=== PATIENT | female | born 1960 | race Caucasian/White ===

== ENCOUNTER 2017-04-29 17:56 | Emergency (ER) | payer BC ==
[2017-04-29 19:09] VITALS: BP 144/60
--- NOTE | 2017-04-29 19:19 | UC ---
Lower Extremity/Ankle HPI - History of Current Complaint Chief Complaint: UCLowerExtremity Stated Complaint: LEFT ANKLE INJURY Time Seen by Provider: 04/29/17 19:12 Hx Obtained From: Patient Hx Last Menstrual Period: few years ?: No Onset/Duration: Sudden Onset - twisted ankle stepping off a ledge., Lasting Hours - 10 hours. Happened at 9:30 AM, Worse Since - with increased swelling Aggravating Factor(s): Standing, Ambulation Alleviating Factor(s): Rest, Elevation, Ice Able to Bear Weight: Yes - Risk Factors Gout Risk Factors: Age Over 40 DVT Risk Factors: Negative Septic Arthritis Risk Factor: Negative - Allergies/Home Medications Allergies/Adverse Reactions: Allergies Allergy/AdvReac Type Severity Reaction Status Date / Time No Known Allergies Allergy Verified 04/29/17 19:09 Home Medications: Home Medications Ibuprofen TAB* [Advil TAB*] 400 mg PO Q8H PRN 04/29/17 [History Confirmed ] PMH/Surg Hx/FS Hx/Imm Hx Psychological History: Anxiety - Surgical History Surgical History: Yes Surgery Procedure, Year, and Place: laser cervical - Family History Known Family History: Positive: Cardiac Disease Negative: Hypertension, Diabetes - Social History Occupation: Employed Full-time Lives: With Family Alcohol Use: Occasionally Substance Use Type: None Smoking Status (MU): Former Smoker Have You Smoked in the Last Year: No Review of Systems Eyes: Eye Redness - and itching with allergies. Musculoskeletal: Arthralgia - Left ankle All Other Systems Reviewed And Are Negative: Yes Physical Exam Triage Information Reviewed: Yes Appearance: Well-Appearing, No Pain Distress, Well-Nourished Vital Signs: Initial Vital Signs Temp 97.9 F 04/29/17 19:05 Pulse 74 04/29/17 19:05 Resp 16 04/29/17 19:05 BP 144/60 04/29/17 19:05 Pulse Ox 100 04/29/17 19:05 Vital Signs Reviewed: Yes Eyes: Positive: Conjunctiva Clear Neck exam: Normal Respiratory Exam: Normal Cardiovascular: Positive: RRR, Murmur:Sys:Grade _?_/ - 3/6 Musculoskeletal: Positive: ROM Limited @ - Left ankle, Other: - Left ankle with swelling over the lateral malleolus and tenderness. Neurological Exam: Normal Psychological Exam: Normal Skin Exam: Normal Lower Extremity Course/Dx - Differential Dx/Diagnosis Differential Diagnosis/HQI/PQRI: Contusion, Fracture (Closed), Sprain, Strain Provider Diagnoses: Left ankle fracture/ talus Discharge - Discharge Plan Condition: Stable Disposition: HOME Patient Education Materials: Ankle Fracture (ED) Referrals: Mary GAYTAN,Ondina Henson [Primary Care Provider] - Mark Han MD [Medical Doctor] - 1 Day Additional Instructions: Avoid weight bearing, Keep leg elevated. Wear the boot at all times.
--- NOTE | 2017-04-29 19:36 | RAD ---
HISTORY: Trauma, lateral malleolus pain COMPARISONS: None VIEWS: 3, Frontal, lateral, and oblique views of the left ankle FINDINGS: BONE DENSITY: Normal. BONES: There is minimal fragmentation of the lateral process of the talus JOINTS: There is no arthropathy. ALIGNMENT: There is no dislocation. SOFT TISSUES: There is circumferential soft tissue swelling OTHER FINDINGS: None. IMPRESSION: SOFT TISSUE SWELLING, WITH MINIMAL FRAGMENTATION OF THE LATERAL PROCESS OF THE TALUS SUGGESTIVE OF AN AVULSION FRACTURE
== END 2017-04-29 20:00 | disposition home or self-care (01) ==
LOC: UCCORT 17:56
DX: S92.102A Unspecified fracture of left talus, initial encounter for closed fracture (principal); W50.2XXA Accidental twist by another person, initial encounter; Y92.9 Unspecified place or not applicable; F41.9 Anxiety disorder, unspecified; Z87.891 Personal history of nicotine dependence
CPT/HCPCS: 99212; G0463

== ENCOUNTER 2019-01-21 12:10 | Emergency (ER) | payer BC ==
--- OUTSIDE RECORDS SUMMARY | 2019-01-21 13:08 | XMS REPORT | Continuity of Care Document ---
:1960 External Reference #:[id number] Author Name Ondina Bishop MD Address [address] [address] [place] [address] Care Team Providers Name Role Phone Ondina Barajas MD Primary Care Physician Unavailable Payers Date Identification Numbers Payment Provider Subscriber Policy Number: [id number] Out Of Area [employer] Number: [id number] [address] [id number] PayID: [id number] [place] [address] Advance Directives Description No Information Available Problems Date Description Provider Status Onset: 02/15/2015 Arthralgia of temporomandibular joint Active Onset: 03/18/2013 Depressive disorder Active Family History Date Family Member(s) Observation Comments General Hyperlipidemia : (age 49 Father due to Coronary Artery premature Years) Disease (CAD) Aunt Ovarian Cancer great aunt Social History Type Date Description Comments Sex Unknown ETOH Use Occasionally consumes alcohol Tobacco Use Start: Unknown Patient has never smoked Recreational Drug Use Never Used Drugs Smoking Status Reviewed: 12/18/17 Patient has never smoked Exercise Type/Frequency Exercises regularly Allergies, Adverse Reactions, Alerts Description No Known Drug Allergies Medications Medication Date Status Form Strength Qnty SIG Indications Ordering Provider Vitamin D3 12/24/ Active Capsules 2000Unit 1 orally Ondina 2018 every day Remi Bishop MD Fluticasone 07/10/ Active Suspension 50mcg/Act 15.80 1 spray H69.90 Maria Isabel Propionate 2017 0ml intranasal RA Borjas twice a day needed Citalopram 08/06/ Active Tablets 10mg 90tab take 1 Ondina Hydrobromide 2015 s tablet by Kelatrice mouth every kike Bishop MD Melatonin 25/ Active Tablets 5mg 0tabs use Unknown 2010 directed Multivitamins 09/13/ Active Capsules 0caps Take one Unknown 2009 capsule by mouth daily Celexa 10/26/ Hx Tablets 10mg 90tab take 1 Unknown 2015 - s tablet by 12/18/ oral route 2017 every day Naprosyn 02/15/ Hx Tablets 500mg 60tab take 1 Unknown 2014 - s tablet by 04/07/ oral route 2016 2 times every day with food Vitamin D 09/13/ Hx Tablets 2000Unit 0tabs 1 PO qd Unknown 2009 - with food 2017 Immunizations CPT Code Status Date Vaccine Lot # [id number] Given 12/18/2016 Tdap [id number] Vital Signs Date Vital Result Comment 12/24/2018 9:04am Height 59.5 inches 4'11.50" Weight 167.25 lb BMI (Body Mass Index) 33.2 kg/m2 BP Systolic 126 mmHg BP Diastolic 80 mmHg Heart Rate 67 /min Body Temperature 98.2 F Body Temperature 36.8 C O2 % BldC Oximetry 98 % 07/10/2018 12:22pm Height 59.5 inches 4'11.50" Weight 162.00 lb BMI (Body Mass Index) 32.2 kg/m2 BP Systolic 112 mmHg BP Diastolic 70 mmHg Heart Rate 103 /min Body Temperature 97.9 F Body Temperature 36.6 C O2 % BldC Oximetry 98 % 12/18/2017 10:58am Height 59.5 inches 4'11.50" Weight 169.50 lb BMI (Body Mass Index) 33.7 kg/m2 BP Systolic 128 mmHg BP Diastolic 78 mmHg Heart Rate 59 /min O2 % BldC Oximetry 100 % 12/18/2016 11:25am Height 59.5 inches 4'11.50" Weight 168.00 lb BMI (Body Mass Index) 33.4 kg/m2 BP Systolic 130 mmHg BP Diastolic 80 mmHg 04/07/2016 1:32pm Weight 171.00 lb BP Systolic 110 mmHg BP Diastolic 80 mmHg Heart Rate 64 /min Body Temperature 98.1 F Body Temperature 36.7 C O2 % BldC Oximetry 97 % 02/15/2015 11:36am Height 59.50 inches Weight 170.62 lb BMI (Body Mass Index) 33.88 kg/m2 BP Systolic 133 mmHg BP Diastolic 75 mmHg Heart Rate 65 /min Body Temperature 97.4 F Body Temperature 36.3 C 12/22/2013 2:38pm Heart Rate 61 /min 12/22/2013 2:38pm Weight 168.00 lb BP Systolic 138 mmHg BP Diastolic 78 mmHg Heart Rate 61 /min 01/16/2013 12:58pm Heart Rate 64 /min 01/16/2013 12:58pm Weight 175.50 lb BP Systolic 129 mmHg BP Diastolic 69 mmHg Heart Rate 64 /min Body Temperature 97.6 F Body Temperature 36.4 C 02/20/2012 1:58pm Weight 156.00 lb BP Systolic 107 mmHg BP Diastolic 69 mmHg Heart Rate 62 /min Body Temperature 97.0 F Body Temperature 36.1 C O2 % BldC Oximetry 100 % 08/15/2011 1:01pm Weight 160.00 lb BP Systolic 114 mmHg BP Diastolic 69 mmHg Heart Rate 71 /min 09/13/2010 12:36pm Height 60.50 inches Weight 164.00 lb BMI (Body Mass Index) 31.00 kg/m2 BP Systolic 116 mmHg BP Diastolic 80 mmHg Heart Rate 68 /min Body Temperature 97.9 F Body Temperature 36.6 C O2 % BldC Oximetry 99 % 03/26/2009 11:45am Height 60.50 inches Weight 164.00 lb BMI (Body Mass Index) 31.00 kg/m2 BP Systolic 132 mmHg BP Diastolic 78 mmHg Heart Rate 71 /min 07/27/2008 9:52am Weight 164.00 lb BP Systolic 115 mmHg BP Diastolic 74 mmHg Heart Rate 60 /min Body Temperature 96.6 F Body Temperature 35.9 C 07/11/2007 12:42pm Weight 166.00 lb Results Test Date Facility Test Result H/L Range Note Cbcadp 12/18/2017 [facility] WBC 6.9 x10E3/uL 4.2-12.0 [address] [place] [address] [phone] RBC 4.09 x10E6/uL 3.9-5.4 HGB 12.4 g/dL 12.0-16.0 HCT 38.3 % 36-47 MCV 93.5 fL 80-98 MCH 30.4 pg 27-33 MCHC 32.5 g/dL 32-36 RDW 13.3 % 11.2-15.2 PLT 205 x10E3/uL 135-420 MPV 8.8 fL 7.0-12.3 % Clarke 51.0 % 41.0-80.0 %Lym 43.3 % 10.0-45.2 %Routt 3.9 % 2.0-13.0 %Eos 1.3 % 0.0-8.0 %Baso 0.5 % 0.0-3.0 Neut 3.5 x10E3/uL 2.0-8.1 Lymp 3.0 x10E3/uL 0.6-3.1 Routt 0.3 x10E3/uL 0.0-1.0 Eos 0.1 x10E3/uL 0.0-0.6 Baso 0.0 x10E3/uL 0.0-0.2 CMP-Female 12/18/2017 [facility] Glucose 90 mg/ dL 74-106 1 [address] [place] [address] [phone] BUN 17 mg/dL 6-20 Creatinine 0.6 mg/dL 0.5-1.3 Sodium 141 mmol/L 136-145 Potassium 4.3 mmol/L 3.5-5.3 Chloride 105 mmol/L 98-107 Co2 29 mEq/L 20-31 Anion Gap 7 mmol/L 7-16 eGFR-female 103 mL/m/1.73m - eGFR-Aa female 125 mL/m/1.73m - 2 Alk. Phos. 60 U/L 46-116 Alt 23 U/L 4-36 3 Ast 20 U/L 8-33 Total Bilirubin 0.5 mg/dL 0.3-1.2 Total Protein 7.2 g/dL 6.4-8.3 4 Albumin 4.4 g/dL 3.6-5.1 A/G Ratio 1.6 Ratio 1.0-2.0 Globulin 2.8 g/dL 2.4-3.7 Calcium 9.2 mg/dL 8.9-10.5 LPPM 12/18/2017 [facility] Cholesterol 235 mg/ dL High 0-200 [address] [place] [address] [phone] Triglycerides 69 mg/dL 0-249 5 HDL 100 mg/dL High 40-60 LDL-Calculated 121 mg/dL 0-130 VLDL 14 mg/dL 0-28 Cardiac Risk 2.35 Ratio Low 3.7-5.3 Laboratory test 12/18/2017 [facility] TSH3 0.997 mIU/ml 0.350-5.500 6 finding [address] [place] [address] [phone] Vitamin D, 25(Oh). 25.72 ng/ml Low 30-100 7 Venipuncture DONE - 8 Cbcadp 12/18/2016 [facility] WBC 7.4 x10E3/uL 4.2-12.0 [address] [place] [address] [phone] RBC 4.12 x10E6/uL 3.9-5.4 HGB 12.5 g/dL 12.0-16.0 HCT 38.6 % 36-47 MCV 93.8 fL 80-98 MCH 30.3 pg 27-33 MCHC 32.3 g/dL 32-36 RDW 13.6 % 11.2-15.2 PLT 228 x10E3/uL 135-420 MPV 8.7 fL 7.0-12.3 % Clarke 49.1 % 41.0-80.0 %Lym 45.5 % High 10.0-45.2 %Routt 3.7 % 2.0-13.0 %Eos 1.3 % 0.0-8.0 %Baso 0.4 % 0.0-3.0 Neut 3.6 x10E3/uL 2.0-8.1 Lymp 3.4 x10E3/uL High 0.6-3.1 Routt 0.3 x10E3/uL 0.0-1.0 Eos 0.1 x10E3/uL 0.0-0.6 Baso 0.0 x10E3/uL 0.0-0.2 CMP-Female 12/18/2016 [facility] Glucose 94 mg/ dL 74-106 9 [address] [place] [address] [phone] BUN 15 mg/dL 6-20 Creatinine 0.7 mg/dL 0.5-1.3 Sodium 141 mmol/L 136-145 Potassium 4.6 mmol/L 3.5-5.3 Chloride 105 mmol/L 98-107 Co2 30 mEq/L 20-31 Anion Gap 6 mmol/L Low 7-16 eGFR-female 87 mL/m/1.73m - eGFR-Aa female 105 mL/m/1.73m - 10 Alk. Phos. 60 U/L 46-116 Alt 22 U/L 4-36 Ast 18 U/L 8-33 Total Bilirubin 0.4 mg/dL 0.3-1.2 Total Protein 7.3 g/dL 6.4-8.3 11 Albumin 4.4 g/dL 3.4-4.8 A/G Ratio 1.5 Ratio 1.0-2.0 Globulin 2.9 g/dL 2.4-3.7 Calcium 9.6 mg/dL 8.9-10.5 LPPM 12/18/2016 [facility] Cholesterol 237 mg/ dL High 0-200 [address] [place] [address] [phone] Triglycerides 94 mg/dL 0-249 12 HDL 110 mg/dL High 40-60 LDL-Calculated 108 mg/dL 0-130 VLDL 19 mg/dL 0-28 Cardiac Risk 2.15 Ratio Low 3.7-5.3 Laboratory test 12/18/2016 [facility] TSH3 1.426 mIU/ml 0.350-5.500 13 finding [address] [place] [address] [phone] Venipuncture DONE - 14 Advia Cbcadp 01/16/2013 [facility] % Clarke 45.5 % [address] [place] [address] [phone] %Baso 0.4 % %Eos 1.7 % %Lym 45.8 % %Routt 4.0 % Baso 0.0 x10E3/uL Eos 0.1 x10E3/uL HCT 39.5 % HGB 13.2 g/dL Lymp 3.0 x10E3/uL MCH 30.4 pg MCHC 33.5 g/dL MCV 90.9 fL MPV 7.8 fL Routt 0.3 x10E3/uL Neut 3.0 x10E3/uL PLT 208 x10E3/uL RBC 4.34 x10E6/uL RDW 12.9 % WBC 6.5 x10E3/uL Vitamin D, 25(Oh). 01/16/2013 [facility] Vitamin D, 25(Oh). 32.00 ng/ml 15 [address] [place] [address] [phone] Venipuncture 01/16/2013 [facility] Venipuncture Done [address] [address] [phone] Uric Acid 01/16/2013 [facility] Uric Acid 4.7 mg /dL [address] [place] [address] [phone] CMP-Female 01/16/2013 [facility] A/G Ratio 1.7 Ratio [address] [place] [address] [phone] Albumin 4.7 g/dL Alk. Phos. 65 U/L Alt 21 U/L Anion Gap 9 mmol/L Ast 20 U/L BUN 16 mg/dL Calcium 9.9 mg/dL Chloride 104 mmol/L Co2 30 mEq/L Creatinine 0.8 mg/dL Globulin 2.8 g/dL Glucose 92 mg/dL 16 Potassium 4.5 mmol/L Sodium 143 mmol/L Total Bilirubin 0.5 mg/dL Total Protein 7.5 g/dL 17 eGFR-Aa female 91 mL/m/1.73m 18 eGFR-female 75 mL/m/1.73m LDH 01/16/2013 [facility] LDH 202 U/L [address] [address] [phone] LDL-Direct 01/16/2013 [facility] LDL-Direct 120 mg/dL [address] [place] [address] [phone] TSH3 01/16/2013 [facility] TSH3 0.839 miu/ml [address] [id number] [phone] Phosphorus 01/16/2013 [facility] Phosphorus 4.0 mg/dL [address] [place] [address] [phone] LPP 01/16/2013 [facility] Cardiac Risk 2.06 Ratio [address] [place] [address] [phone] Cholesterol 239 mg/dL HDL 116 mg/dL 19 Triglycerides 47 mg/dL 20 VLDL 9 mg/dL Venipuncture 02/20/2012 [facility] Venipuncture Done [address] [place] [address] [phone] Uric Acid 02/20/2012 [facility] Uric Acid 4.2 mg /dL [address] [place] [address] [phone] TSH3 02/20/2012 [facility] TSH3 1.264 miu/ml [address] [place] [address] [phone] Advia Cbcadp 02/20/2012 [facility] % Clarke 50.3 % [address] [place] [address] [phone] %Baso 0.9 % %Eos 2.0 % %Lym 40.7 % %Routt 3.7 % Baso 0.1 x10E3/uL Eos 0.1 x10E3/uL HCT 39.9 % HGB 13.2 g/dL Lymp 2.9 x10E3/uL MCH 30.3 pg MCHC 33.0 g/dL MCV 91.8 fL MPV 8.5 fL Routt 0.3 x10E3/uL Neut 3.5 x10E3/uL PLT 221 x10E3/uL RBC 4.35 x10E6/uL RDW 12.6 % WBC 7.0 x10E3/uL CMP-Female 02/20/2012 [facility] A/G Ratio 1.5 Ratio [address] [place] [address] [phone] Albumin 4.5 g/dL Alk. Phos. 60 U/L Alt 20 U/L Anion Gap 8 mmol/L Ast 20 U/L BUN 14 mg/dL Calcium 9.7 mg/dL Chloride 105 mmol/L Co2 29 mEq/L Creatinine 0.8 mg/dL Globulin 3.1 g/dL Glucose 84 mg/dL 21 Potassium 4.4 mmol/L Sodium 142 mmol/L Total Bilirubin 0.5 mg/dL Total Protein 7.6 g/dL 22 eGFR-Aa female 92 mL/m/1.73m 23 eGFR-female 76 mL/m/1.73m LDH 02/20/2012 [facility] LDH 176 U/L [address] [place] [address] [phone] Phosphorus 02/20/2012 [facility] Phosphorus 4.0 mg/dL [address] [place] [address] [phone] LPP 02/20/2012 [facility] Cardiac Risk 2.16 Ratio [address] [place] [address] [phone] Cholesterol 229 mg/dL HDL 106 mg/dL Triglycerides 61 mg/dL 24 VLDL 12 mg/dL LDL-Direct 02/20/2012 [facility] LDL-Direct 109 mg/dL [address] [place] [address] [phone] Vitamin D, 25(Oh) 09/16/2010 [facility] Vitamin D , 25(Oh) 32 ng/mL 25 [address] [place] [address] [phone] Advia Cbcadp 09/13/2010 [facility] % Clarke 47.6 % [address] [place] [address] [phone] %Baso 0.5 % %Eos 1.5 % %Lym 44.9 % %Routt 3.3 % Baso 0.0 x10E3/uL Eos 0.1 x10E3/uL HCT 39.5 % HGB 12.8 g/dL Lymp 3.0 x10E3/uL MCH 29.6 pg MCHC 32.5 g/dL MCV 91.0 fL MPV 7.7 fL Routt 0.2 x10E3/uL Neut 3.2 x10E3/uL PLT 187 x10E3/uL RBC 4.34 x10E6/uL RDW 13.0 % WBC 6.6 x10E3/uL CMP-Female 09/13/2010 [facility] A/G Ratio 1.5 Ratio [address] [place] [address] [phone] Albumin 4.4 g/dL Alk. Phos. 49 U/L Alt 20 U/L Anion Gap 6 mmol/L Ast 20 U/L BUN 15 mg/dL Calcium 9.7 mg/dL Chloride 105 mmol/L Co2 30 mEq/L Creatinine 0.9 mg/dL Globulin 3 g/dL Glucose 91 mg/dL 26 Potassium 4.1 mmol/L Sodium 141 mmol/L Total Bilirubin 0.5 mg/dL Total Protein 7.4 g/dL 27 eGFR-Aa female 81 mL/m/1.73m 28 eGFR-female 67 mL/m/1.73m Uric Acid 09/13/2010 [facility] Uric Acid 4.1 mg /dL [address] [place] [address] [phone] LDH 09/13/2010 [facility] LDH 186 U/L [address] [place] [address] [phone] LDL-Direct 09/13/2010 [facility] LDL-Direct 118 mg/dL [address] [place] [address] [phone] LPP 09/13/2010 [facility] Cardiac Risk 2.05 Ratio [address] [place] [address] [phone] Cholesterol 226 mg/dL HDL 110 mg/dL 29 Triglycerides 46 mg/dL 30 VLDL 9 mg/dL Phosphorus 09/13/2010 [facility] Phosphorus 3.3 mg/dL [address] [place] [address] [phone] TSH3 09/13/2010 [facility] TSH3 0.997 miu/ml [address] [place] [address] [phone] Felicita 03/30/2009 [facility] Felicita Negative [address] [place] [address] [phone] Felicita Negative WSR 03/26/2009 [facility] Westergren Sed Rt. 17 mm/hr [address] [place] [address] [phone] Westergren Sed Rt. 17 mm/hr Uric Acid 03/26/2009 [facility] Uric Acid 4.0 mg /dL [address] [place] [address] [phone] Uric Acid 4.0 mg/dL LDL-Direct 03/26/2009 [facility] LDL-Direct 106 mg/dL [address] [place] [id number] [phone] LDL-Direct 106 mg/dL LDH 03/26/2009 [facility] LDH 197 U/L [address] [address] [phone] LDH 197 U/L CMP-Female 03/26/2009 [facility] A/G Ratio 1.5 Ratio [address] [place] [address] [phone] A/G Ratio 1.5 Ratio Albumin 4.7 g/dL Albumin 4.7 g/dL Alk. Phos. 62 U/L Alk. Phos. 62 U/L Alt 22 U/L Alt 22 U/L Anion Gap 7 mmol/L Anion Gap 7 mmol/L Ast 20 U/L Ast 20 U/L BUN 20 mg/dL BUN 20 mg/dL Calcium 9.5 mg/dL Calcium 9.5 mg/dL Chloride 106 mmol/L Chloride 106 mmol/L Co2 28 mEq/L Co2 28 mEq/L Creatinine 0.7 mg/dL Creatinine 0.7 mg/dL Globulin 3.2 g/dL Globulin 3.2 g/dL Glucose 98 mg/dL 31 Glucose 98 mg/dL 32 Patient Age 48 Patient Age 48 Potassium 4.4 mmol/L Potassium 4.4 mmol/L Sodium 141 mmol/L Sodium 141 mmol/L Total Bilirubin 0.4 mg/dL Total Bilirubin 0.4 mg/dL Total Protein 7.9 g/dL 33 Total Protein 7.9 g/dL 34 eGFR-Aa female 108 mL/m/1.73m 35 eGFR-Aa female 108 mL/m/1.73m 36 eGFR-female 89 mL/m/1.73m eGFR-female 89 mL/m/1.73m LPP 03/26/2009 [facility] Cardiac Risk 2.27 Ratio [place] [address] [phone] Cardiac Risk 2.27 Ratio Cholesterol 225 mg/dL Cholesterol 225 mg/dL HDL 99 mg/dL HDL 99 mg/dL Triglycerides 52 mg/dL 37 Triglycerides 52 mg/dL 38 VLDL 10 mg/dL VLDL 10 mg/dL Phosphorus 03/26/2009 [facility] Phosphorus 3.9 mg/dL [address] [place] [address] [phone] Phosphorus 3.9 mg/dL Advia Cbcadp 03/26/2009 [facility] % Clarke 40.6 % [address] [place] [address] [phone] % Clarke 40.6 % %Baso 1.1 % %Baso 1.1 % %Eos 1.4 % %Eos 1.4 % %Lym 50.6 % %Lym 50.6 % %Routt 3.3 % %Routt 3.3 % Baso 0.1 3/uL Baso 0.1 3/uL Eos 0.1 3/uL Eos 0.1 3/uL HCT 37.4 % HCT 37.4 % HGB 12.4 g/dL HGB 12.4 g/dL Lymp 4.4 3/uL Lymp 4.4 3/uL MCH 29.6 pg MCH 29.6 pg MCHC 33.2 g/dL MCHC 33.2 g/dL MCV 89.1 fL MCV 89.1 fL MPV 8.3 fL MPV 8.3 fL Routt 0.3 3/uL Routt 0.3 3/uL Neut 3.5 3/uL Neut 3.5 3/uL PLT 237 3/uL PLT 237 3/uL RBC 4.19 6/uL RBC 4.19 6/uL RDW 12.5 % RDW 12.5 % WBC 8.7 3/uL WBC 8.7 3/uL TSH 03/26/2009 [facility] TSH 0.827 miu/ml [address] [place] [address] [phone] TSH 0.827 miu/ml Estradiol 07/11/2007 [facility] Estradiol 25 pg/ mL 39 [address] [place] [address] [phone] FSH 07/11/2007 [facility] FSH 72.5 miU/ml 40 [address] [place] [address] [phone] Free T4 07/11/2007 [facility] Free T4 1.01 ng/ dL 41 [address], [place] [id number] [phone] HCG Serum Qual 07/11/2007 [facility] HCG Serum Qual Negative [address] [id number] [phone] LH 07/11/2007 [facility] LH 41.2 miU/ml 42 [address], [place] [id number] [phone] TSH 07/11/2007 [facility] TSH 1.461 miu/ml [address] [address] [phone] 1 [place] [employer] (ADA) Recommended Range is 65-99 mg/dL 2 Normal Kidney Function or Mild Disease GFR >59 mL/min/1.73m2 Chronic Kidney Disease GFR 15-59 mL/min/1.73m2 Renal Failure GFR <15 mL/min/1.73m2 3 Effective 04/21/2017: [employer] has indicated interference with the drugs sulfasalazine and sulfapyridine. They suggest collection should occur prior to drug administration due to falsely depressed results. 4 Results may reflect a potential interference in Total Protein results in patients receiving dextran as blood volume expanders. 5 National Cholesterol Education Program (NCEP) Guidelines: Recommended Range <150 mg/dL 6 nonfasting 7 Recommended Levels for Circulating 25-hydroxy Vitamin D: Vitamin D Status 25-OH Vitamin D Test Result Deficient <10ng/mL Insufficient 10-29ng/mL Sufficient 30-100ng/mL Potential Intoxication >100ng/mL A pediatric reference range has not been established using this method. 8 nonfasting 9 [employer] (ADA) Recommended Range is 65-99 mg/dL 10 Normal Kidney Function or Mild Disease GFR >59 mL/min/1.73m2 Chronic Kidney Disease GFR 15-59 mL/min/1.73m2 Renal Failure GFR <15 mL/min/1.73m2 11 Results may reflect a potential interference in Total Protein results in patients receiving dextran as blood volume expanders. 12 National Cholesterol Education Program (NCEP) Guidelines: Recommended Range <150 mg/dL 13 non fasting 14 non fasting 15 Recommended Levels for Circulating 25-hydroxy Vitamin D: Vitamin D Status 25-OH Vitamin D Test Result Deficient <10ng/mL Insufficient 10-29ng/mL Sufficient 30-100ng/mL Potential Intoxication >100ng/mL A pediatric reference range has not been established using this method. 16 [employer] (ADA) Recommended Range is 65-99 mg/dL 17 Results may reflect a potential interference in Total Protein results in patients receiving dextran as blood volume expanders. 18 Normal Kidney Function or Mild Disease GFR >59 mL/min/1.73m2 Chronic Kidney Disease GFR 15-59 mL/min/1.73m2 Renal Failure GFR <15 mL/min/1.73m2 As of 12/21/2008 the equation used to calculate eGFR has been changed to reflect a reagent reformulation. The reference range has not been affected. 19 Results Confirmed on Dilution. 20 National Cholesterol Education Program (NCEP) Guidelines: Recommended Range <150 mg/dL 21 [employer] [place] [employer] (ADA) Recommended Range is 65-99 mg/dL 22 Results may reflect a potential interference in Total Protein results in patients receiving dextran as blood volume expanders. 23 Normal Kidney Function or Mild Disease GFR >59 mL/min/1.73m2 Chronic Kidney Disease GFR 15-59 mL/min/1.73m2 Renal Failure GFR <15 mL/min/1.73m2 As of 12/21/2008 the equation used to calculate eGFR has been changed to reflect a reagent reformulation. The reference range has not been affected. 24 National Cholesterol Education Program (NCEP) Guidelines: Recommended Range <150 mg/dL 25 Recommended Levels for Circulating 25-hydroxy Vitamin D: Vitamin D Status 25-OH Vitamin D Test Result Deficient <10ng/mL Insufficient 10-29ng/mL Sufficient 30-100ng/mL Potential Intoxication >100ng/mL A pediatric reference range has not been established using this method. 26 [employer] [employer] (ADA) Recommended Range is 65-99 mg/dL 27 Results may reflect a potential interference in Total Protein results in patients receiving dextran as blood volume expanders. 28 Normal Kidney Function or Mild Disease GFR >59 mL/min/1.73m2 Chronic Kidney Disease GFR 15-59 mL/min/1.73m2 Renal Failure GFR <15 mL/min/1.73m2 As of 12/21/2008 the equation used to calculate eGFR has been changed to reflect a reagent reformulation. The reference range has not been affected. 29 Results Confirmed on Dilution. 30 National Cholesterol Education Program (NCEP) Guidelines: Recommended Range <150 mg/dL 31 [employer] [employer] (ADA) Recommended Range is 65-99 mg/dL 32 [employer] [employer] (ADA) Recommended Range is 65-99 mg/dL 33 Results may reflect a potential interference in Total Protein results in patients receiving dextran as blood volume expanders. 34 Results may reflect a potential interference in Total Protein results in patients receiving dextran as blood volume expanders. 35 Normal Kidney Function or Mild Disease GFR >59 mL/min/1.73m2 Chronic Kidney Disease GFR 15-59 mL/min/1.73m2 Renal Failure GFR <15 mL/min/1.73m2 As of 12/21/2008 the equation used to calculate eGFR has been changed to reflect a reagent reformulation. The reference range has not been affected. 36 Normal Kidney Function or Mild Disease GFR >59 mL/min/1.73m2 Chronic Kidney Disease GFR 15-59 mL/min/1.73m2 Renal Failure GFR <15 mL/min/1.73m2 As of 12/21/2008 the equation used to calculate eGFR has been changed to reflect a reagent reformulation. The reference range has not been affected. 37 National Cholesterol Education Program (NCEP) Guidelines: Recommended Range <150 mg/dL 38 National Cholesterol Education Program (NCEP) Guidelines: Recommended Range <150 mg/dL 39 Reference Ranges Menstruating Females: (Day of cycle relative to LH Peak) Follicular (-12) 19 - 83 pg/mL (-4) 64 - 183 Midcycle (-1) 150 - 528 Luteal (+2) 58 - 157 (+6) 60 - 211 (+12) 55 - 150 Post Menopausal Female (Untreated) 0 - 31 40 Interpretation: Reference Ranges Males 1.4 - 18.1 miu/ml Normally Menstruating Females Follicular Phase: 2.5 - 10.2 miu/ml Midcycle Phase: 3.4 - 33.4 miu/ml Luteal Phase: 1.5 - 9.1 miu/ml Post Menopausal Female: 23.0 - 116.3 miu/ml 41 Results [phone] 42 Interpretation: Reference Ranges Males (20-70 yrs) : 1.5 - 9.3 miu/ml Normally Menstruating Females Follicular Phase: 1.9 - 12.5 miu/ml Midcycle Phase: 8.7 - 76.3 miu/ml Luteal Phase: 0.5 - 16.9 miu/ml Female: <0.1 - 1.5 miu/ml Post Menopausal Female: 15.9 - 54.0 miu/ml Procedures Date Code Description Status 09/13/2010 85717 Electrocardiogram Complete Completed Encounters Type Date Location Provider Dx Diagnosis Office Visit 07/10/2018 [facility] Primary Care Maria Isabel Borjas, H69.93 Unspecified 12:20p AT [facility] Eustachian tube disorder, bilateral J30.9 Allergic rhinitis, unspecified Office Visit 12/18/2017 11:00a [facility] Primary Ondina Khalil Z00.00 Encntr for Care AT Marlena Bishop MD general adult medical exam w/o abnormal findings E78.5 Hyperlipidemia, unspecified F41.9 Anxiety disorder, unspecified M85.80 Oth disrd of bone density and structure, unspecified site H92.02 Otalgia, left ear Office Visit 12/18/2016 11:30a [facility] Primary Ondina Khalil Z00.00 Encntr for Care AT Marlena Bishop MD general adult medical exam w/o abnormal findings E78.5 Hyperlipidemia, unspecified H92.02 Otalgia, left ear M85.80 Oth disrd of bone density and structure, unspecified site Z23 Encounter for immunization Office Visit 04/07/2016 1:40p [facility] Jael Wang, H92.02 Otalgia, left AT [place] [employer] ear Plan of Treatment Future Appointment(s):12/31/2019 8:00 am - Ondina Bishop MD at [id number]/24/2018 - Ondina Bishop MDZ00.00 Encounter for general adult medical examination without abnoE78.5 Hyperlipidemia, [id number] Other specified disorders of bone density and structure, unsE55.9 Vitamin D deficiency, [id number] Anxiety disorder, [id number] Nonscarring hair loss, unspecified
[2019-01-21 13:09] VITALS: BP 128/75
--- NOTE | 2019-01-21 13:20 | UC ---
UC General HPI - HPI Summary HPI Summary: PER TRIAGE, pt with cough, feels feverish, left eye redness. Pt states family with flu. symptoms since sunday. + headache and bodyaches plus scratchy throat. spouse with same and dx flu. - History of Current Complaint Chief Complaint: UCRespiratory Stated Complaint: CONGESTION, COUGH, FLU EXPOSURE Time Seen by Provider: 01/21/19 13:13 Hx Obtained From: Patient Hx Last Menstrual Period: few years Onset/Duration: Sudden Onset Timing: Constant Pain Intensity: 2 Associated Signs & Symptoms: Negative: Diarrhea, SOB, Vomiting - Allergy/Home Medications Allergies/Adverse Reactions: Allergies Allergy/AdvReac Type Severity Reaction Status Date / Time No Known Allergies Allergy Verified 01/21/19 13:09 PMH/Surg Hx/FS Hx/Imm Hx Psychological History: Depression - Surgical History Surgical History: Yes Surgery Procedure, Year, and Place: laser cervical - Family History Known Family History: Positive: Cardiac Disease Negative: Hypertension, Diabetes - Social History Alcohol Use: Weekly Substance Use Type: None Smoking Status (MU): Former Smoker Have You Smoked in the Last Year: No Review of Systems All Other Systems Reviewed And Are Negative: Yes Constitutional: Positive: Fever, Chills ENT: Positive: Sore Throat Respiratory: Positive: Cough Musculoskeletal: Positive: Myalgia Neurological: Positive: Headache Physical Exam Triage Information Reviewed: Yes Appearance: Well-Appearing Vital Signs: Initial Vital Signs Temp 100.1 F 01/21/19 13:06 Pulse 90 01/21/19 13:06 Resp 18 01/21/19 13:06 BP 128/75 01/21/19 13:06 Pulse Ox 95 01/21/19 13:06 Vital Signs Reviewed: Yes Eyes: Positive: Conjunctiva Clear, Other: - subconjunctival hemorrhage L inner eye ENT: Positive: Pharynx normal, TMs normal. Negative: Nasal drainage Neck: Positive: Supple, Nontender, No Lymphadenopathy Respiratory: Positive: Lungs clear, Normal breath sounds, No respiratory distress Cardiovascular: Positive: RRR, No Murmur Abdomen Description: Positive: Nontender, No Organomegaly, Soft Bowel Sounds: Positive: Present Musculoskeletal: Positive: ROM Intact Neurological: Positive: Alert Psychological: Positive: Age Appropriate Behavior Skin Exam: Normal Skin: Negative: Rashes Course/Dx - Differential Dx - Multi-Symptom Differential Diagnoses: Other - s/s's c/w influenza and spouse with same confirmed with test. 3rd day of symptoms, Tamiflu not indicated. - Diagnoses Provider Diagnosis: Influenza-like illness Discharge - Sign-Out/Discharge Documenting (check all that apply): Patient Departure All imaging exams completed and their final reports reviewed: No Studies - Discharge Plan Condition: Stable Disposition: HOME Patient Education Materials: Influenza (ED) Forms: *Work Release Referrals: Mary GAYTAN,Ondina Henson [Primary Care Provider] - Additional Instructions: FOLLOW UP PRIMARY CARE IF NOT BETTER IN 5 DAYS OR SOONER IF WORSE. - Billing Disposition and Condition Condition: STABLE Disposition: Home
== END 2019-01-21 13:31 | disposition home or self-care (01) ==
LOC: UCCORT 12:10
DX: R05 Cough (principal); R50.9 Fever, unspecified; H57.89 Other specified disorders of eye and adnexa; Z20.828 Contact with and (suspected) exposure to other viral communicable diseases
CPT/HCPCS: 99211; G0463

== ENCOUNTER 2019-02-23 08:10 | Emergency (ER) | payer BC ==
[2019-02-23 08:34] VITALS: BP 129/78
--- NOTE | 2019-02-23 09:07 | UC ---
Throat Pain/Nasal Yasir HPI - HPI Summary HPI Summary: pt c/o laryngitis, St bilateral ear plugged, nasal congestion, occiasional cough X 2 days. - History of Current Complaint Chief Complaint: UCRespiratory Stated Complaint: THROAT,EARS,COUGH Time Seen by Provider: 02/23/19 08:42 Hx Obtained From: Patient Hx Last Menstrual Period: few years ?: No Onset/Duration: Sudden Onset, Lasting Days, Still Present Severity: Mild Pain Intensity: 0 Cough: Nonproductive Associated Signs & Symptoms: Positive: Hoarseness - Epiglottits Risk Factors Epiglottis Risk Factors: Negative - Allergies/Home Medications Allergies/Adverse Reactions: Allergies Allergy/AdvReac Type Severity Reaction Status Date / Time No Known Allergies Allergy Verified 02/23/19 08:28 Home Medications: Home Medications Naproxen Sodium [Aleve] 220 mg PO ONCE PRN 02/23/19 [History Confirmed 02/23/19] PMH/Surg Hx/FS Hx/Imm Hx Previously Healthy: Yes - Surgical History Surgical History: Yes Surgery Procedure, Year, and Place: laser cervical - Family History Known Family History: Positive: Cardiac Disease Negative: Hypertension, Diabetes - Social History Occupation: Employed Full-time Lives: With Family Alcohol Use: Weekly Substance Use Type: None Smoking Status (MU): Former Smoker Have You Smoked in the Last Year: No - Immunization History Vaccination Up to Date: Yes Review of Systems All Other Systems Reviewed And Are Negative: Yes Constitutional: Positive: Negative Skin: Positive: Negative Eyes: Positive: Negative ENT: Positive: Sore Throat, Ear Ache Respiratory: Positive: Cough Cardiovascular: Positive: Negative Gastrointestinal: Positive: Negative Genitourinary: Positive: Negative Motor: Positive: Negative Neurovascular: Positive: Negative Musculoskeletal: Positive: Negative Neurological: Positive: Negative Psychological: Positive: Negative Is Patient Immunocompromised?: No Physical Exam Triage Information Reviewed: Yes Appearance: Well-Appearing Vital Signs: Initial Vital Signs Temp 97.1 F 02/23/19 08:30 Pulse 74 02/23/19 08:30 Resp 18 02/23/19 08:30 BP 129/78 02/23/19 08:30 Pulse Ox 97 02/23/19 08:30 Vital Signs Reviewed: Yes Eye Exam: Normal ENT: Positive: Other - cerumen in right ear canal Dental Exam: Normal Neck exam: Normal Respiratory Exam: Normal Cardiovascular Exam: Normal Musculoskeletal Exam: Normal Neurological Exam: Normal Psychological Exam: Normal Skin Exam: Normal Throat Pain/Nasal Course/Dx - Differential Dx/Diagnosis Differential Diagnosis/HQI/PQRI: Laryngitis, URI Provider Diagnosis: Excessive cerumen in right ear canal, Viral syndrome, Laryngitis Discharge - Sign-Out/Discharge Documenting (check all that apply): Patient Departure All imaging exams completed and their final reports reviewed: No Studies - Discharge Plan Condition: Stable Disposition: HOME Prescriptions: Fluticasone NASAL SPRAY 50MCG* [Flonase NASAL SPRAY 50MCG*] 2 spray BOTH NARES DAILY PRN #1 btl PRN Reason: Congestion predniSONE TAB* [Deltasone 10 MG TAB*] 30 mg PO DAILY #12 tab Patient Education Materials: Laryngitis (ED), Viral Syndrome (ED) Referrals: Mary GAYTAN,Ondina Henson [Primary Care Provider] - If Needed - Billing Disposition and Condition Condition: STABLE Disposition: Home
== END 2019-02-23 09:36 | disposition home or self-care (01) ==
LOC: UCCORT 08:10
DX: H61.21 Impacted cerumen, right ear (principal); B34.9 Viral infection, unspecified; J04.0 Acute laryngitis; Z87.891 Personal history of nicotine dependence
CPT/HCPCS: 99213; G0463